=== PATIENT | male | born 1970 | race African-American/Black ===

== ENCOUNTER 2019-03-25 06:53 | Emergency (ER) | payer SELFPAY ==
[~2019-03-25] VITALS: Ht 180.3 cm; Wt 88.0 kg
[2019-03-25] MEDS ORDERED: HYDROCODONE/ACETAMINOPHEN 10/325MG TABLET PO ONE (07:30)
[2019-03-25] MEDS ORDERED: KETOROLAC 60MG/2ML VIAL IM ONE (09:00)
[2019-03-25 09:32] VITALS: BP 170/103
== END 2019-03-25 09:33 | disposition home or self-care (01) ==
LOC: ER 06:53
DX: M10.072 Idiopathic gout, left ankle and foot (principal); M1A.0720 Idiopathic chronic gout, left ankle and foot, without tophus (tophi); I10 Essential (primary) hypertension
CPT/HCPCS: 36415; 84550; 96372; 99283; J1885; Z7610